=== PATIENT | female | born 1935 | race Caucasian/White ===

== ENCOUNTER 2019-12-08 08:43 | Outpatient (CLI) | payer MEDICARE, BC | END 2019-12-08 23:59 | disposition home or self-care (01) | LOC: CFH 08:43 | PROVIDERS: ATTEND Family Medicine | DX: M85.88 Other specified disorders of bone density and structure, other site (principal); M81.0 Age-related osteoporosis without current pathological fracture | CPT/HCPCS: 77080 ==

== ENCOUNTER 2020-02-03 17:39 | Emergency (ER) | payer MEDICARE, BC ==
[~2020-02-03] VITALS: Ht 157.5 cm; Wt 50.3 kg
--- NOTE | 2020-02-03 18:35 | NUR ---
PT TO ROOM FROM [facility], ASSUME CARE AT THIS TIME. PT PUT IN BED WITH IN A GOWN WITH [employer], SPO2, BP Q 30 MIN, SIDE RAILS UP X2, CALL LIGHT IN REACH. 20 IV STARTED IN RIGHT FOREARM (BLOOD SENT TO LAB).
--- NOTE | 2020-02-03 18:37 | NUR ---
PT IN DROPLET PLUS PRECAUTIONS
[2020-02-03 18:41] LABS: BASOPHILS # (AUTO) 0.01 x10^3/uL (0-0.1); BASOPHILS % (AUTO) 0 % (0-1); EOSINOPHILS % (AUTO) 0 % (1-7); LYMPHOCYTES # (AUTO) 0.39 x10^3/uL (1-3.4); LYMPHOCYTES % (AUTO) 3 % (22-44); MD NO; MEAN CORPUSCULAR HGB CONC 33.7 g/dL (32.4-35.8); MEAN CORPUSCULAR VOLUME 97.9 fL (80-100); MEAN PLATELET VOLUME 7.6 fL (7.4-10.4); MONOCYTES # (AUTO) 1.43 x10^3/uL (0.2-0.8); MONOCYTES % (AUTO) 11 % (2-9); NEUTROPHILS # (AUTO) 11.44 x10^3/uL (1.8-6.8); NEUTROPHILS % (AUTO) 86 % (42-75); PLATELET COUNT 227 x10^3/uL (130-400); RED BLOOD COUNT 4.27 x10^6/uL (3.82-5.3); RED CELL DISTRIBUTION WIDTH 13.6 % (9.6-15.2)
[2020-02-03 18:47] LABS: ALBUMIN 3.3 g/dL (3.4-5.0); ANION GAP 10 mmol/L (5-15); CALCIUM 8.5 mg/dL (8.5-10.1); CHLORIDE 99 mmol/L (98-107); CREATININE 0.95 mg/dL (0.55-1.02)
[2020-02-03] MEDS ORDERED: ACETAMINOPHEN 325 MG TABLET ONE (18:52)
[2020-02-03] MEDS ORDERED: ACETAMINOPHEN 325 MG TABLET PO ONE (19:00)
[2020-02-03 19:09] LABS: TROPONIN I < 0.015 ng/mL (0.000-0.045)
[2020-02-03] MEDS ORDERED: POTASSIUM CHLORIDE 20 MEQ TAB.ER.PRT PO ONE (19:30)
[2020-02-03] MEDS ORDERED: POTASSIUM CHLORIDE 20 MEQ TAB.ER.PRT ONE (19:32)
[2020-02-03] MEDS ORDERED: ALBUTEROL SULFATE 2.5 MG/3 ML ONE (19:45)
[2020-02-03] MEDS ORDERED: CEFDINIR 300 MG CAPSULE ONE (19:47)
[2020-02-03] MEDS ORDERED: CEFDINIR 300 MG CAPSULE PO ONE (20:00)
[2020-02-03] MEDS ORDERED: ALBUTEROL SULFATE 2.5 MG/3 ML NPPB ONE (20:00)
[2020-02-03 20:12] VITALS: BP 164/71
== END 2020-02-03 20:41 | disposition home or self-care (01) ==
LOC: ED 20:30
DX: J44.1 Chronic obstructive pulmonary disease with (acute) exacerbation (principal); R06.00 Dyspnea, unspecified; R50.9 Fever, unspecified
CPT/HCPCS: 36415; 71045; 80048; 82040; 83605; 83880; 84484; 85025; 87040; 93005; 94640; 99285; J7512; J7613

== ENCOUNTER 2020-06-04 13:06 | Emergency (ER) | payer MEDICARE, BC ==
[~2020-06-04] VITALS: Ht 157.5 cm; Wt 48.0 kg
--- NOTE | 2020-06-04 13:41 | NUR ---
PT A&OX4, RESP EVEN & UNLABORED, SPEECH CLEAR. WOKE WITH REDNESS TO SKIN AROUND EYES BILAT. SLIGHT BURNING FEELING TO AREAS LAST NOC. INSTILLED LUBRICATING DROPS THIS MORNING AFTER WAKING. DENIES INSTILLING ANY DROPS IN EYES YESTERDAY. APPLY HYDROCORTISONE OINTMENT TO SKIN "A COUPLE OF HOURS AGO FOR THE ITCHING" W/ RELIEF. DENIES NEW SOAPS, LOTIONS. HAS A DOG; DENIES ALLERGY TO ANIMAL DANDER. REPORTS CHRONIC DECREASED SENSE OF SMELL. DENIES DYSPNEA, SOB, FEVER. SENSE OF TASTE INTACT./
[2020-06-04 13:53] VITALS: BP 151/92
[2020-06-04] MEDS ORDERED: ALBUTEROL (13:54)
[2020-06-04] MEDS ORDERED: BUDESONIDE (13:54)
--- NOTE | 2020-06-04 13:55 | NUR ---
DCR PASTOR BS FOR EXAM
== END 2020-06-04 14:29 | disposition home or self-care (01) ==
LOC: ED 14:28
DX: H57.13 Ocular pain, bilateral (principal); R94.31 Abnormal electrocardiogram [ECG] [EKG]; R00.0 Tachycardia, unspecified
CPT/HCPCS: 93005; 99283